=== PATIENT | female | born 1990 | race Caucasian/White ===

== ENCOUNTER 2017-05-04 17:59 | Emergency (ER) | payer MEDICAID ==
[~2017-05-04] VITALS: Ht 157.5 cm; Wt 50.0 kg
[2017-05-04 18:00] VITALS: BP 123/60; PULSE 66; RESP 20; TEMP 98.9; O2SAT 99
[2017-05-04] MEDS ORDERED: CYCL1TAB29 PO (18:13)
[2017-05-04] MEDS ORDERED: NAPR500 PO (18:13)
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
== END 2017-05-04 19:00 | disposition home or self-care (01) ==
LOC: NEPK 17:59
DX: S39.012A Strain of muscle, fascia and tendon of lower back, initial encounter (principal); X50.0XXA Overexertion from strenuous movement or load, initial encounter; Y93.H2 Activity, gardening and landscaping; Y92.017 Garden or yard in single-family (private) house as the place of occurrence of the external cause
CPT/HCPCS: 99283

== ENCOUNTER 2017-11-02 19:44 | Emergency (ER) | payer MEDICAID ==
[~2017-11-02] VITALS: Ht 162.6 cm; Wt 56.8 kg
[~2017-11-02 19:44] MED LIST: CYCL10TA PO; NAPR500 PO
[2017-11-02 20:09] VITALS: BP 94/64; PULSE 85; RESP 20; TEMP 97.8; O2SAT 100
== END 2017-11-02 23:28 | disposition left against medical advice (07) ==
LOC: NED 19:44
DX: R10.9 Unspecified abdominal pain (principal); Z53.21 Procedure and treatment not carried out due to patient leaving prior to being seen by health care provider
CPT/HCPCS: 99281